=== PATIENT | male | born 1940 | race Caucasian/White ===

== ENCOUNTER 2019-08-14 13:21 | Emergency (ER) | payer MEDICARE, OTHER, SELFPAY ==
--- NOTE | ~2019-08-14 | XR_ITS ---
EXAMINATION: XR chest 2V EXAM DATE: 08/14/2019 14:21 INDICATION: Cough and congestion. TECHNIQUE: Frontal and lateral projections of the chest obtained and reviewed. There is no prior umberto dy for comparison. FINDINGS: The lungs are clear. There are no pleural effusions. The cardiomediastinal silhouette is within normal limits. There is no pneumothorax suspected. Large thoracic endplate osteophytes. IMPRESSION: No acute cardiopulmonary findings. Reviewed, dictated and finalized at location A. ULE INSPECTOR
[2019-08-14 13:30] VITALS: BP 121/63; PULSE 58; RESP 20; TEMP 36.9; O2SAT 98
--- NOTE | 2019-08-14 14:10 | ED.URI ---
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 Patient denies shortness of breath but reports patient has a history of Alzheimer's. Patient is pleasant and cooperative but a poor historian. denies known fever. She reports this could have been going on longer than 2 days but she really noticed pronounced cough yesterday. MD elicited complaint: cough Related Data Home Medications Medication Instructions Recorded Confirmed Crill Oil 08/14/19 Vitamin D3 08/14/19 aspirin [Aspir-81] 81 mg PO DAILY 08/14/19 08/14/19 bimatoprost [Lumigan] 1 drp OPHTHALMIC (EYE) DAILY 08/14/19 08/14/19 finasteride [Proscar] 5 mg PO DAILY 08/14/19 08/14/19 memantine [Namenda XR] 28 mg PO DAILY 08/14/19 08/14/19 oj-hv-OL-vit [id number]-[id number]-coQ10 cap PO 08/14/19 [Daily Multivitamin] rosuvastatin [Crestor] 5 mg PO DAILY 08/14/19 08/14/19 sertraline 50 mg PO DAILY 08/14/19 08/14/19 silodosin [Rapaflo] 8 mg PO DAILY 08/14/19 08/14/19 timolol maleate 08/14/19 Allergies Allergy/AdvReac Type Severity Reaction Status Date / Time No Known Allergies Allergy Unknown Verified 08/14/19 13:40 Review of Systems Review of Systems: Narrative: CONSTITUTIONAL: Denies fever, chills, or sweats. EYES: Denies visual changes, redness, or discharge. ENT: Reports rhinorrhea, congestion, denies sore throat, or otalgia. CARDIOVASCULAR: Denies chest pain, palpitations, or edema. RESPIRATORY: Reports cough, denies dyspnea. GASTROINTESTINAL: Denies abdominal pain, nausea, vomiting, or diarrhea. GENITOURINARY: Denies dysuria or hematuria. SKIN: Denies rash or itching. MUSCULOSKELETAL: Denies back pain, joint pain, or myalgia. NEUROLOGIC: Denies headache, numbness, dizziness, or weakness. PSYCHIATRIC: Denies anxiety or depression. [facility] Past Medical History Medical History (Updated 08/14/19 @ 14:26 by GERARDO Junior) Alzheimer's dementia Arthritis Depression Enlarged prostate Glaucoma Hypercholesterolemia Surgical History Surgical History (Updated 08/14/19 @ 14:16 by GERARDO Junior) Total knee replacement status Bilateral Social History Social History (Updated 08/14/19 @ 14:18 by GERARDO Junior) Smoking status: Unknown if ever smoked Second hand tobacco smoke exposure: No Alcohol intake: current Alcohol use details: social Substance use: never Living arrangements: with family Occupation/Education: retired Gender identity (if verbalized by the patient): Male Exam Narrative: Exam Narrative: GENERAL: Well-appearing, well-nourished, and in no acute distress. HEAD: Normocephalic, atraumatic. EYES: EOMI. No redness or drainage. Conjunctiva are normal. ENT: Mucous membranes pink and moist. Nares clear. Clear rhinorrhea. TMs normal bilaterally. Throat normal. Uvula midline. CHEST: No respiratory distress. Expiratory wheeze and diminished sounds left. HEART: Regular rate and rhythm. No murmur appreciated. Normal peripheral pulses. EXTREMITIES: Normal range of motion. No edema. SKIN: Warm, dry, no rash. NEURO: No focal deficits. Alert and oriented x3. Gait steady. PSYCH: Normal affect. No signs of depression or anxiety. Course Vital Signs Vital signs: Vital Signs Temperature 36.9 C 08/14/19 13:30 Pulse Rate 58 L 08/14/19 13:30 Respiratory Rate 08/14/19 13:30 Blood Pressure 121/63 08/14/19 13:30 Pulse Oximetry 98 08/14/19 13:30 Temperature 36.9 C 08/14/19 13:30 Pulse Rate 58 L 08/14/19 13:30 Respiratory Rate 08/14/19 13:30 Blood Pressure 121/63 08/14/19 13:30 Pulse Oximetry 98 08/14/19 13:30 MDM - URI/Sore Throat Differentia
== END 2019-08-14 14:31 | disposition home or self-care (01) ==
PROVIDERS: Emergency Provider Nurse Practitioner; PCP Physician Assistant
DX: J06.9 Acute upper respiratory infection, unspecified (principal); G30.9 Alzheimer's disease, unspecified; F02.80 Dementia in other diseases classified elsewhere, unspecified severity, without behavioral disturbance, psychotic disturbance, mood disturbance, and anxiety; F32.9 Major depressive disorder, single episode, unspecified; N40.0 Benign prostatic hyperplasia without lower urinary tract symptoms; H40.9 Unspecified glaucoma; E78.00 Pure hypercholesterolemia, unspecified; Z96.653 Presence of artificial knee joint, bilateral
CPT/HCPCS: 71046; 99213; G0463

== ENCOUNTER 2020-02-19 13:15 | Emergency (ER) | payer MEDICARE, OTHER, SELFPAY ==
[2020-02-19 13:34] VITALS: BP 140/70; PULSE 58; RESP 20; TEMP 36.5; O2SAT 97
--- NOTE | 2020-02-19 13:38 | ED.EAR ---
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 Patient wears bilateral hearing aids and states that he tends to have excessive wax in his ears and that caregiver instills debrox to both ears once to twice weekly. Patient has history of Alzheimers and is confined to wheelchair but is fully alert and oriented, have 15 hour daily care givers. Caregiver states that she has not noticed any drainage from his right ear. MD Complaint: decreased hearing Location: right ear Duration: intermittent Severity: mild Relieving factors: nothing Exacerbating factors: nothing Discharge from ear: Reports no Associated symptoms ear: decreased hearing and other (ear feels full) Treatment prior to arrival: other (puts debrox in ear once-twice weekly) Related Data Home Medications Medication Instructions Recorded Confirmed Crill Oil 08/14/19 08/18/19 aspirin [Aspir-81] 81 mg PO DAILY 08/14/19 02/19/20 bimatoprost [Lumigan] 1 drp OPHTHALMIC (EYE) DAILY 08/14/19 02/19/20 memantine [Namenda XR] 28 mg PO DAILY 08/14/19 02/19/20 af-ev-CV-vit Q-rjrzv-izq-coQ10 cap PO 08/14/19 08/18/19 [Daily Multivitamin] sertraline 50 mg PO DAILY 08/14/19 02/19/20 Allergies Allergy/AdvReac Type Severity Reaction Status Date / Time No Known Allergies Allergy Unknown Verified 08/17/19 11:36 Review of Systems Review of Systems: Narrative: CONSTITUTIONAL: Denies fever, chills, or sweats. EYES: Denies visual changes, redness, or discharge. ENT: Denies rhinorrhea, congestion, sore throat, positive for right ear feeling full, denies acute pain. CARDIOVASCULAR: Denies chest pain, palpitations, or edema. RESPIRATORY: Denies cough or dyspnea. GASTROINTESTINAL: Denies abdominal pain, nausea, vomiting, or diarrhea. GENITOURINARY: Denies dysuria or hematuria. SKIN: Denies rash or itching. MUSCULOSKELETAL: Denies back pain, joint pain, or myalgia. NEUROLOGIC: Denies headache, numbness, or weakness. PSYCHIATRIC:patient has history of alzheimers and depression. All systems reviewed & are unremarkable except as noted in HPI and below PMFSH Past Medical History Medical History Alzheimer's dementia Arthritis Depression Enlarged prostate Glaucoma Hypercholesterolemia Surgical History Surgical History Total knee replacement status Bilateral Social History Social History (Updated 02/19/20 @ 14:47 by Tabitha Ortiz NP) Smoking status: Never smoker Second hand tobacco smoke exposure: No Alcohol intake: current Substance use: never Living arrangements: with family Gender identity (if verbalized by the patient): Male Comments At time of signature, agree with nursing past medical, surgical, social history. There is no relevant family history pertinent to the presenting complaint Exam Narrative: Exam Narrative: GENERAL: Well-appearing, well-nourished, and in no acute distress. HEAD: Normocephalic, atraumatic. EYES: PERRLA and EOMI. ENT: Nares clear, no rhinorrhea or epistaxis. Mucous membranes moist, complaints of feelings of fullness to right ear with noted parker wax in ear with scaley irritated look of canal, no purulent drainage NECK: Supple.no lymphadenopathy CHEST: Clear to auscultation. No respiratory distress.SAO2 97% room air HEART: Regular rate and rhythm. No murmur heard. Normal peripheral pulses. ABDOMEN: Soft, nontender, nondistended, normal active bowel sounds. EXTREMITIES: Normal range of motion. No edema. SKIN: Warm, dry, no rash. NEURO: No
== END 2020-02-19 14:05 | disposition home or self-care (01) ==
PROVIDERS: Emergency Provider Registered Nurse; PCP Internal Medicine
DX: H60.501 Unspecified acute noninfective otitis externa, right ear (principal); H61.21 Impacted cerumen, right ear; G30.9 Alzheimer's disease, unspecified; F02.80 Dementia in other diseases classified elsewhere, unspecified severity, without behavioral disturbance, psychotic disturbance, mood disturbance, and anxiety; M19.90 Unspecified osteoarthritis, unspecified site; F32.9 Major depressive disorder, single episode, unspecified; E78.00 Pure hypercholesterolemia, unspecified; H40.9 Unspecified glaucoma; N40.0 Benign prostatic hyperplasia without lower urinary tract symptoms; Z96.653 Presence of artificial knee joint, bilateral; Z79.82 Long term (current) use of aspirin
CPT/HCPCS: 69209; 99213; G0463

== ENCOUNTER 2020-07-09 14:46 | Emergency (ER) | payer MEDICARE, SELFPAY ==
[2020-07-09 14:52] VITALS: BP 131/52; PULSE 73; RESP 16; TEMP 36.9; O2SAT 97
--- NOTE | 2020-07-09 15:01 | ED.URI ---
HPI - URI/Sore Throat General Chief Complaint: Upper Respiratory Infection Stated Complaint: COUGH/TIRED Time Seen by Provider: 07/09/20 14:50 Source: patient, family and RN notes reviewed History of Present Illness HPI Narrative: Patient is a 79-year-old male who presents the urgent care with a family friend. Patient has Alzheimer's and his spouse has end-stage ALS and was unable to come to the appointment. Family friend states that the reports him being a little fatigued to taking a nap this morning and starting with a mild cough and sneezing yesterday. Family friend states that they live at [place] in the [facility] and have little to no contact with anyone. No known contact with Covid. Patient states that he feels fine . Denies of any shortness of breath, wheezing, chest pain. Patient has not taken anything [id number] for his symptoms. Denies of any fever, nausea, vomiting. No other acute complaints. No acute distress noted. Patient and family friend aware of the plan of care. Some parts of this dictation were generated by voice recognition software and may contain typographical and/or grammatical inaccuracies. Related Data Home Medications Medication Instructions Recorded Confirmed Crill Oil 08/14/19 04/30/20 aspirin [Aspir-81] 81 mg PO DAILY 08/14/19 04/30/20 bimatoprost [Lumigan] 1 drp OPHTHALMIC (EYE) DAILY 08/14/19 04/30/20 memantine [Namenda XR] 28 mg PO DAILY 08/14/19 04/30/20 it-ei-MI-vit U-jmoyv-jgs-coQ10 cap PO 08/14/19 04/30/20 [Daily Multivitamin] sertraline 50 mg PO DAILY 08/14/19 04/30/20 ascorbate calcium (vitamin C) 500 500 mg PO BID 04/29/20 04/30/20 mg tablet cholecalciferol (vitamin D3) 50 50 mcg PO DAILY 04/29/20 04/30/20 mcg (2,000 unit) capsule timolol maleate 0.25 % eye drops 1 drp OPHTHALMIC (EYE) Q12H 04/29/20 04/30/20 Allergies Allergy/AdvReac Type Severity Reaction Status Date / Time No Known Allergies Allergy Unknown Verified 04/29/20 11:17 Review of Systems Review of Systems: Narrative: CONSTITUTIONAL: Denies fever, chills, or sweats. EYES: Denies visual changes, redness, or discharge. ENT: Denies rhinorrhea, congestion, sore throat, or otalgia. Reports of intermittent sneezing CARDIOVASCULAR: Denies chest pain, palpitations, or edema. RESPIRATORY: Reports of slight nonproductive cough without dyspnea GASTROINTESTINAL: Denies abdominal pain, nausea, vomiting, or diarrhea. GENITOURINARY: Denies dysuria or hematuria. SKIN: Denies rash or itching. MUSCULOSKELETAL: Denies back pain, joint pain, or myalgia. NEUROLOGIC: Denies headache, numbness, or weakness. All other systems reviewed are negative, except as documented in HPI. [facility] Past Medical History Medical History (Updated 07/09/20 @ 15:06 by GERARDO Thompson) Alzheimer's dementia Arthritis Depression Enlarged prostate Glaucoma Hypercholesterolemia Surgical History Surgical History Total knee replacement status Bilateral Social History Social History Smoking status: Never smoker Second hand tobacco smoke exposure: No Alcohol intake: current Substance use: never Gender identity (if verbalized by the patient): Male Comments At the time of my signature, I reviewed and agree with the nursing past medical, surgical, social, and family history. There is no relevant family history pertinent to the patient complaint. Exam Narrative: Exam Narrative: GENERAL: This is a well-nourished, well-developed patient, in no apparent distress. HEAD: normocephalic, atraumatic. EYES: PERRL. Sclera clear/white. Vision is grossly intact. EARS: External ears normal, auditory canals clear and without drainage, TMs normal without perforation. Hearing grossly intact. NOSE: External nose normal with no obvious nasal discharge, nares without redness, no rhinorrhea. THROAT: Mucous
== END 2020-07-09 15:11 | disposition home or self-care (01) ==
PROVIDERS: Emergency Provider Nurse Practitioner Family; PCP Internal Medicine
DX: R06.7 Sneezing (principal); R05 Cough; G30.9 Alzheimer's disease, unspecified; F02.80 Dementia in other diseases classified elsewhere, unspecified severity, without behavioral disturbance, psychotic disturbance, mood disturbance, and anxiety; F32.9 Major depressive disorder, single episode, unspecified; N40.0 Benign prostatic hyperplasia without lower urinary tract symptoms; H40.9 Unspecified glaucoma; E78.00 Pure hypercholesterolemia, unspecified
CPT/HCPCS: 99211; G0463

== ENCOUNTER 2021-01-06 11:34 | Outpatient (CLI) | payer MEDICARE, SELFPAY ==
[2021-01-08 20:54] LABS: NIL 0.02 IU/mL; Quantiferon TB Plus, 1T NEGATIVE (NEGATIVE)
== END 2021-01-06 11:35 | disposition home or self-care (01) ==
PROVIDERS: PCP Internal Medicine; Visit Provider Physician Assistant
DX: R76.12 Nonspecific reaction to cell mediated immunity measurement of gamma interferon antigen response without active tuberculosis (principal)
CPT/HCPCS: 36415; 86480